=== PATIENT | female | born 1980 | race Caucasian/White ===

== ENCOUNTER 2021-09-22 06:46 | Day surgery (SDC) | payer OTHER ==
[~2021-09-22] VITALS: Ht 165.1 cm; Wt 52.7 kg
[~2021-09-22 06:46] MED LIST: HYDROmorphone 2 MG/ML INJ. IVP PRN; IV RINGERS,LACTATED 1000ML 1,000 ML IV SCH; MORPHINE SULFATE 2 MG/ML INJ. IVP PRN; PROCHLORPERAZINE 10 MG/2 ML VIAL. IVP PRN; fentaNYL PF VIAL 100 MCG/2 ML VIAL IVP PRN
[2021-09-22 07:15] VITALS: BP 117/73
[2021-09-22] MEDS ORDERED: TRAZ-118 PO (07:21)
[2021-09-22] MEDS ORDERED: SCOPOLAMINE 1.5MG PATCH. TD ONE (07:30)
[2021-09-22] MEDS ORDERED: BUPIVACAINE-EPI 0.25% 30 ML VIAL KIT. ONE (08:07)
[2021-09-22] MEDS ORDERED: HYDR-2761 PO (08:16)
[2021-09-22] MEDS ORDERED: PROPOFOL 10 MG/ML (20ML) VIAL. IV ONE (08:30)
[2021-09-22] MEDS ORDERED: DEXAMETHASONE SOD PHOS 4 MG/ML VIAL ONE (08:30)
[2021-09-22] MEDS ORDERED: ONDANSETRON PF 4 MG/2 ML VIAL. ONE (08:30)
[2021-09-22] MEDS ORDERED: LIDOCAINE 1% PF 5 ML VIAL. ONE (08:30)
[2021-09-22] MEDS ORDERED: fentaNYL PF VIAL 100 MCG/2 ML VIAL ONE (08:31)
--- NOTE | 2021-09-22 09:15 | PDOC4 ---
OPERATIVE NOTE Date: Date: Sep 22, 2021 Pre-Op Diagnosis: Right knee degenerative joint disease right knee Post-Op Diagnosis: Same Procedure Performed: Removal hardware right tibia injection PRP right knee Surgeon: Espinoza Anesthesia Type: General Blood Loss: 10 cc Specimans Obtained: None Findings: See dictation Complications: None SELINA MCNAMARA Jr. DO Sep 22, 2021 09:15
--- NOTE | 2021-09-22 09:17 | DISCH ---
DISCHARGE INSTRUCTIONS Condition on Discharge Condition on Discharge: Stable Activity After Discharge Activity Instructions for Disc: Activity as tolerated Driving Instructions after Dis: Do not drive today Weight Bearing Status after Di: Full weight bearing Wound Incision Care Wound/Incision Care: Ice to area for comfort, Keep wound elevated, Change dr roman Other wound/incision instructi: Change dressing postoperative day #3 Follow-Up Follow up with: 10 to 14 days SELINA MCNAMRAA Jr. DO Sep 22, 2021 09:17
[2021-09-22 09:36] VITALS: BP 98/71
[2021-09-22] MEDS ORDERED: HYDROcodone/APAP 5/325MG 1 TAB TABLET PO ONE (09:45)
--- NOTE | 2021-09-22 12:03 | OP ---
DATE OF SURGERY: 09/22/2021 PREOPERATIVE DIAGNOSIS: Retained hardware, painful right tibia, degenerative joint disease, right knee. POSTOPERATIVE DIAGNOSIS: Retained hardware, painful right tibia, degenerative joint disease, right knee. PROCEDURE: 1. Removal of hardware screws x 2, right tibia. 2. PRP injection, right knee. SURGEON: Tate Doran Jr, DO. ANESTHESIA: General. PICK OUT HAND: Jone Paniagua. ESTIMATED BLOOD LOSS: 10 mL. Standard dictation for office assistance. DESCRIPTION OF PROCEDURE: The patient was taken to the operative suite, given a general anesthetic. Right lower extremity was then prepped and draped in a sterile fashion. Incision was made through skin and subcutaneous tissues. After tourniquet was inflated directly over the area of the hardware. This was removed in its entirety and then rongeur was used to smooth out the bone that had been around the area of the base of the screw head. This was smoothed. Therefore, this was thoroughly irrigated. There was noticed with intraoperative x-ray that there was a washer that was there that was removed in its entirety as well. The wounds were then thoroughly irrigated and closed in interrupted fashion using 3-0 nylon. Local was placed in the area. PRP had been drawn from the patient as far as the blood that was spun on the back table and then it was given to us sterilely. A 10 mL of PRP was then injected into the knee. Sterile dressing was then applied. The patient was then taken from the operative bed to the postoperative bed, taken to the PACU in stable condition. MOISES/DAVIS DR: Kristi TID: [id number]
== END 2021-09-22 10:09 | disposition home or self-care (01) ==
LOC: SURG 06:46
PROVIDERS: ATTEND Orthopaedic Surgery
DX: T84.84XA Pain due to internal orthopedic prosthetic devices, implants and grafts, initial encounter (principal); M17.11 Unilateral primary osteoarthritis, right knee; M17.31 Unilateral post-traumatic osteoarthritis, right knee; Z79.899 Other long term (current) drug therapy; Z98.890 Other specified postprocedural states; Z72.89 Other problems related to lifestyle; X58.XXXA Exposure to other specified factors, initial encounter; Y93.89 Activity, other specified; Y92.89 Other specified places as the place of occurrence of the external cause; Y99.8 Other external cause status
CPT/HCPCS: 0232T; 20680; 81025; A4930; A6253; J0690; J1100; J2405; J2704; J3010; J3490; 76000; A6455